=== PATIENT | female | born 1930 | race Caucasian/White ===

== ENCOUNTER 2020-11-16 17:05 | Inpatient (IN) | payer OTHER ==
[~2020-11-16] VITALS: Ht 162.6 cm; Wt 70.3 kg
[2020-11-16 17:09] VITALS: BP 124/34
[2020-11-16] MEDS ORDERED: LORAZEPAM 0.50.5 MG PO (17:11)
[2020-11-16] MEDS ORDERED: LEVO-T50 MCG PO (17:11)
[2020-11-16] MEDS ORDERED: BACTRIM DS TAB1 EAC1 PO (17:11)
[2020-11-16] MEDS ORDERED: ELIQUIS2.5 MG PO (17:11)
[2020-11-16] MEDS ORDERED: SINEMET 10-1001 EAC1 PO (17:12)
[2020-11-16] MEDS ORDERED: METHADONE HCL5 MG PO (17:12)
[2020-11-16] MEDS ORDERED: HYDROMORPHO1 MG/1 M9 IV (17:21)
[2020-11-16 17:45] LABS: HCO3 25.5 mmol/L (22.0-26.0); PCO2 40.3 mmHg (35.0-45.0); PO2 84.2 mmHg (80.0-100.0); pH 7.419 (7.360-7.450); sO2 96.5 % (92.0-98.0)
[2020-11-16 18:01] LABS: ABSOLUTE NEUTROPHILS 4.4 thou/uL (1.4-8.2); BASOPHILS 0.5 % (0.0-2.0); EOSINOPHILS 1.7 % (0.0-3.0); HEMATOCRIT 38.4 % (37.0-47.0); HEMOGLOBIN 12.6 gm/dL (12.0-15.0); LYMPHOCYTES 24.7 % (24.0-44.0); MCH 29.2 pg (26.0-34.0); MCHC 32.9 g/dL (28.0-37.0); MCV 88.7 fL (80.0-100.0); MONOCYTES 6.4 % (1.0-8.0); PLATELET COUNT 179 thou/uL (150-400); POLYS 66.7 % (36.0-66.0); RBC 4.33 mil/uL (4.20-5.00); RDW 15.5 % (10.5-14.5); WBC 6.5 thou/uL (4.0-11.0)
[2020-11-16 18:10] LABS: URINE BLOOD 3+ (Negative); URINE CLARITY CLEAR; URINE COLOR YELLOW; URINE GLUCOSE-RANDOM* NEGATIVE (Negative); URINE KETONES NEGATIVE (Negative); URINE PROTEIN (DIPSTICK) 3+ (Negative); URINE SPECIFIC GRAVITY <= 1.005 (1.005-1.035)
[2020-11-16 18:11] LABS: CREATININE 1.5 mg/dL (0.6-1.0); POTASSIUM 4.5 mmol/L (3.5-5.1)
[2020-11-16 18:14] LABS: URINE LEUKOCYTES-REFLEX 3+ (Negative); URINE NITRITE-REFLEX POSITIVE (Negative)
[2020-11-16 18:17] LABS: ALBUMIN 3.6 g/dL (3.4-5.0); TOTAL BILIRUBIN 0.7 mg/dL (0.2-1.0); TOTAL PROTEIN 7.8 g/dL (6.4-8.2)
[2020-11-16 18:23] LABS: ICTOTEST (BILI CONFIRMATORY) Negative (Negative)
[2020-11-16 18:24] LABS: URINE BILIRUBIN NEGATIVE (Negative)
[2020-11-16 18:41] LABS: TRIPLE PHOSPHATE CRYSTALS 4-10 Moderate /LPF (None Seen)
[2020-11-16 18:42] LABS: CASTS None Seen /LPF (None Seen); SQUAMOUS None Seen /LPF (0-3); URINE WBC-REFLEX 0-5 Rare /HPF (0-5)
[2020-11-16 20:05] VITALS: BP 131/59
[2020-11-16 21:37] VITALS: BP 126/52
--- NOTE | 2020-11-16 22:10 | NUR ---
Pt. was admitted to the unit from the emergency room accompanied by staff. She is awake, but does not verbalize. At times she will mummble some words. Bed alarm is on.
[2020-11-17 02:03] LABS: CALCIUM 9.7 mg/dL (8.5-10.1); CREATININE 1.3 mg/dL (0.6-1.0); MAGNESIUM 2.1 mg/dL (1.8-2.4); POTASSIUM 4.3 mmol/L (3.5-5.1)
[2020-11-17 05:29] VITALS: BP 117/85
[2020-11-17 06:03] LABS: HEMATOCRIT 36.1 % (37.0-47.0); HEMOGLOBIN 11.6 gm/dL (12.0-15.0); MCH 28.7 pg (26.0-34.0); MCV 89.7 fL (80.0-100.0); RBC 4.03 mil/uL (4.20-5.00); RDW 15.8 % (10.5-14.5); WBC 7.1 thou/uL (4.0-11.0)
--- NOTE | 2020-11-17 06:41 | NUR ---
Pt. rested at short intervals during the night when checked on during frequent rounds. Padilla catheter that she came in with was leaking and it was replaced per order. Hematuria is present. No apparent pain. Pt. can attempt to strike out at staff during direct care. Bed alarm is on.
[2020-11-17 08:00] VITALS: BP 137/62
[2020-11-17 09:00] VITALS: BP 134/55
--- NOTE | 2020-11-17 11:31 | NUR ---
Assumed pt care at 7am.Pt in bed resting. Assessment completed.vss.Pt fed at breakfast .Pt refused meal but took few nites of apple sauce.Repositioned for comfort.Dr Mg here.Order noted.Will replace lumbar drsg before the shift is over.Pt in bed sleeping at present.Will continue to monitor.
[2020-11-17 16:00] VITALS: BP 139/61
[2020-11-17 20:22] VITALS: BP 157/75
--- NOTE | 2020-11-18 02:58 | NUR ---
PT CARE ASSUMED AT 1900 WITH PT ON BED.PT IS ON BEDREST AND A TOTAL CARE AND Q2 TURN.PT IS A/O TO SELF.PT HAS A SACRO-LUMBAR WOUND WITH DRESSING C/D/I.PT NON COORPERATIVE WITH CARE AND SPITTING OUT MEDICATION.MEDS CRUSHED AND PUT IN APPLE SAUCE.IV ACCESS ON RT FA GOT INFILTRATED AND NEW ONE PLACED ON RT WRIST SL.WILL CONTINUE TO MONITOR
[2020-11-18 05:42] LABS: HEMATOCRIT 33.2 % (37.0-47.0); HEMOGLOBIN 10.9 gm/dL (12.0-15.0); MCH 29.2 pg (26.0-34.0); MCHC 32.6 g/dL (28.0-37.0); MCV 89.5 fL (80.0-100.0); RBC 3.71 mil/uL (4.20-5.00); RDW 15.7 % (10.5-14.5); WBC 7.2 thou/uL (4.0-11.0)
[2020-11-18 05:49] LABS: CALCIUM 9.4 mg/dL (8.5-10.1); CREATININE 0.9 mg/dL (0.6-1.0); POTASSIUM 3.9 mmol/L (3.5-5.1)
[2020-11-18 07:32] VITALS: BP 140/56
[2020-11-18 08:14] VITALS: BP 140/56
--- NOTE | 2020-11-18 12:33 | NUR ---
WOUND CONSULT; A WOUND WAS IDENTIFIED TO THE MID THORASIC BACK. UNSTAGEABLE ATH THIS TIME. THE WOUND IS UNSTABLE WITH A SMALL AMOUNT OF SEROSANGIOUS DRAINAGE. LIKELY COLONIZED WOUND. TENDER TO PATIENT. RECOMMENDATION; AG FOAM, SECURE WITH TAPE CHANGE M/W/F PRN DISCUSSED WITH RN.
--- NOTE | 2020-11-18 13:24 | NUR ---
PT ADMITTED RELATED TO UTI, HYPERNATREMIA, ACUTE RENAL FAILURE. CM REVIEWED CHART AND SPOKE WITH CARE TEAM. CM CALLED AND SPOKE WITH PT'S SON RUDY MARTELL . HE INDICATED THAT PT RESIDES IN A HOUSE WITH HIM WITH NO STEPS TO ENTER AND NONE INSIDE. HE INDICATED THAT PT HAD BEEN BED BOUND PRESSURE WASHER. HE INDICATED THAT PT HAD BEEN ON SERVICE WITH [facility] PRESSURE WASHER. HE INDICATED THAT HE HAD SIGNED REVOCATION PAPERWORK PRESSURE WASHER. CM CONTACTED [facility] FOR PAPERWORK AND IT WAS FAXED TO CM PLACED ON CHART AND SCANED TO PT'S RECORD. PT'S SON INDICATED THAT THEY HAVE A HOSPITAL BED, MANDIE LIFT DEVICE, AND BEDSIDE COMMODE FOR HOME USE. SON INDICATED THAT HE ANTICPATED PT RETURNING HOME WITH HOSPICE ONCE MEDICALLY STABLE BUT THAT HE DIDN'T WANT [facility] AGAIN. HE ASKED THAT REFERRAL BE SENT TO HOSPICE. CM FAXED REFERRAL AND NOTIFIED LIAISON. CARE TEAM INDIATED THAT PT MAY BE DC READY TOMORROW. CM FOLLOWING REGARDING DC PLANNING.
--- NOTE | 2020-11-18 15:36 | NUR ---
This RN agrees with the assessment of the DESK SERGEANT.
--- NOTE | 2020-11-18 15:52 | NUR ---
ASSUMED CARE OF PATIENT AT SHIFT CHANGE. ASSESSMENT CHARTED. MEDICATIONS GIVEN PER MAR; CRUSHED IN ICE-CREAM. PER SPEECH, PATIENT ABLE TO TAKE PO INTAKE IF HOLDING SPOON; IF PERSON FEEDING PATIENT SPOONS FOOD INTO PATIENT MOUTH WHILE SHE HOLDS SPOON, PATIENT WILL THINK SHE IS FEEDING SELF AND TAKE THE FOOD. WOUND CARE COMPLETED BY KADEN WOUND NURSE. PATIENT IS NOW ON A LOW AIRLOSS MATTRESS AND HAS BILATERAL PRAFO BOOTS. PATIENT AWAKE WITH EYES CLOSED; OCASSIONALLY SAYS "NO" BUT OTHERWISE NOT ORIENTED. LEGGER PRESS OPERATOR AT BEDSIDE. PLAN IS FOR PATIENT TO RETURN HOME TOMORROW 11/19/20 W HOSPICE SVC'S. FALL PRECAUTIONS REMIAN IN PLACE AND FREQUENT ROUNDING IN PLACE. CONTINUING TO MONITOR PATIENT
[2020-11-18 16:11] VITALS: BP 146/80
[2020-11-18 20:01] VITALS: BP 153/76
--- NOTE | 2020-11-19 04:02 | NUR ---
Assumed pt care at 1900. Alert to self only,answers yes/no at times,singing. VSS. No s/sx of pain or distress. Repositioned every 2 hrs w/o problems.Padilla patent to DD with yellow urine. Foam dressing in place on mid upper back. Fall precautions in place,frequent checks on pt. SR/SB on telemetry. Resting w/o any distress,will continue to monitor pt.
[2020-11-19 08:07] VITALS: BP 122/55
--- NOTE | 2020-11-19 08:42 | NUR ---
Chart reviewed, pt likely discharge today with hospice. Defer nutrition eval.
[2020-11-19 09:43] VITALS: BP 122/55
--- NOTE | 2020-11-19 11:08 | NUR ---
CARE TEAM INDICATED THAT PT IS MEDICALLY STABLE TO DC HOME THIS DAY. PT IS TO DC HOME ONTO HOSPICE SERVICES. EQUIPTMENT HAS BEEN DELIVERED TO THE HOME AT THE TIME OF THIS NOTE. [facility] STRETCHER ARRANGED FOR [address]. CM NOTIFIED IP ARCHITECT AND PT'S SON ALL ARE AWARE AND AGREEABLE. OUTSIDE HOSPITAL DNR FORM COMPLETED. NO OTHER CM INTERVENTION INDICATED. CASE CLOSED.
--- NOTE | 2020-11-19 15:18 | NUR ---
ASSUMED CARE OF PATIENT AT SHIFT CHANGE. ASSESSMENT CHARTED. MEDICATIONS ADMINISTERED PER EMAR CRUSHED WITH PUDDING. PATIENT IS NON VERBAL AND DISORIENTED. ON BEDREST AND REPOSITIONED Q2 HRS. PIKE INTACT. WOUNDCARE COMPLETE BY BHARATH WOODALL RN. THIS NURSE UNABLE TO TAKE PHOTOS OF DIOOSCHARGE WOUND PER WOUND CARE. IV ABX INFUSED X1; IV DISCONTINUED. PATIENT LEFT UNIT W PRAFO BOOTS W DENIS.
--- NOTE | 2020-11-19 15:34 | NUR ---
[facility] NOTIFIED OF DOUGH PANNER STILL ON PATIENT APPROX 8 MINUTES POST DEPARTURE. DISPATCH NOTIFIED CREW AND THEY WILL RETURN BOX AFTER TRANFER.
--- NOTE | 2020-11-19 15:43 | NUR ---
WOUND CARE F/U; THE MID BACK WOUND IS DRAINGING SEROSANGINOUS DRAINAGE WITH A SMALL TO MODERATE AMOUNT. THERE IS NO ORDER. THIS IS AN AREA OVER AN SPINE ABNORMALITY. A PRESSURE INJURY IS PRESENT. NO ODOR. THE PATIENT CANNOT TURN HERSELF. RECOMMENDATIONS; CONTINUE CURRENT TREATMENT. DISCUSSED WITH RN.
== END 2020-11-19 16:47 | disposition hospice, home (50) | DRG 698 ==
LOC: ER 17:05 → 4W 19:33 → EROBS 19:33 → 4W 19:33
PROVIDERS: Emergency Medicine; Hospitalist; Nurse Practitioner Acute Care; ADMIT Internal Medicine; ATTEND Internal Medicine
PROC: 0T2BX0Z Change Drainage Device in Bladder, External Approach (ICD-10-PCS; principal; 2020-11-17)
DX: T83.511A Infection and inflammatory reaction due to indwelling urethral catheter, initial encounter (principal); G93.41 Metabolic encephalopathy; N17.0 Acute kidney failure with tubular necrosis; E87.0 Hyperosmolality and hypernatremia; L02.212 Cutaneous abscess of back [any part, except buttock and flank]; N39.0 Urinary tract infection, site not specified; R31.9 Hematuria, unspecified; N18.30 Chronic kidney disease, stage 3 unspecified; S31.000A Unspecified open wound of lower back and pelvis without penetration into retroperitoneum, initial encounter; G20 Parkinson's disease; X58.XXXA Exposure to other specified factors, initial encounter; G89.29 Other chronic pain; E03.9 Hypothyroidism, unspecified; K59.00 Constipation, unspecified; Z51.5 Encounter for palliative care; Z86.718 Personal history of other venous thrombosis and embolism; Z79.01 Long term (current) use of anticoagulants; Z79.899 Other long term (current) drug therapy; Y92.89 Other specified places as the place of occurrence of the external cause; Y93.89 Activity, other specified; Y99.8 Other external cause status
CPT/HCPCS: 10045

== ENCOUNTER 2020-11-27 17:42 | Inpatient (IN) | payer OTHER ==
[~2020-11-27] VITALS: Ht 162.6 cm; Wt 59.4 kg
[~2020-11-27 17:42] MED LIST: BACTRIM DS TAB1 EAC1 PO; ELIQUIS2.5 MG PO; HYDROMORPHO1 MG/1 M9 IV; LEVO-T50 MCG PO; LORAZEPAM 0.50.5 MG PO; METHADONE HCL5 MG PO; SINEMET 10-1001 EAC1 PO
[2020-11-27 17:44] VITALS: BP 135/64
[2020-11-27 18:44] LABS: ABSOLUTE NEUTROPHILS 5.2 thou/uL (1.4-8.2); BASOPHILS 0.5 % (0.0-2.0); EOSINOPHILS 3.3 % (0.0-3.0); HEMATOCRIT 32.8 % (37.0-47.0); HEMOGLOBIN 10.6 gm/dL (12.0-15.0); LYMPHOCYTES 23.6 % (24.0-44.0); MCH 28.5 pg (26.0-34.0); MCHC 32.3 g/dL (28.0-37.0); MCV 88.3 fL (80.0-100.0); MONOCYTES 10.2 % (1.0-8.0); PLATELET COUNT 204 thou/uL (150-400); POLYS 62.4 % (36.0-66.0); RBC 3.71 mil/uL (4.20-5.00); RDW 15.7 % (10.5-14.5); WBC 8.3 thou/uL (4.0-11.0)
[2020-11-27 18:53] LABS: URINE BILIRUBIN 1+ (Negative); URINE BLOOD 3+ (Negative); URINE CLARITY CLEAR; URINE COLOR YELLOW; URINE GLUCOSE-RANDOM* NEGATIVE (Negative); URINE KETONES TRACE (Negative); URINE LEUKOCYTES-REFLEX 1+ (Negative); URINE NITRITE-REFLEX POSITIVE (Negative); URINE PROTEIN (DIPSTICK) 2+ (Negative); URINE SPECIFIC GRAVITY >= 1.030 (1.005-1.035)
[2020-11-27 18:53] LABS: CALCIUM 9.2 mg/dL (8.5-10.1); CREATININE 0.8 mg/dL (0.6-1.0); POTASSIUM 4.3 mmol/L (3.5-5.1)
[2020-11-27 18:59] LABS: ALBUMIN 2.6 g/dL (3.4-5.0); DIRECT BILIRUBIN 0.5 mg/dL (<0.1-0.2); MAGNESIUM 1.8 mg/dL (1.8-2.4); TOTAL BILIRUBIN 1.1 mg/dL (0.2-1.0); TOTAL PROTEIN 6.4 g/dL (6.4-8.2)
[2020-11-27 19:11] LABS: MUCUS 4-6 Moderate strn/LPF (None Seen); SQUAMOUS None Seen /LPF (0-3)
[2020-11-27 19:12] LABS: CASTS None Seen /LPF (None Seen); URINE WBC-REFLEX 6-15 Few /HPF (0-5)
[2020-11-27 19:13] LABS: BACTERIA-REFLEX >30 Many /HPF (None Seen); CRYSTALS None Seen /LPF (None Seen)
[2020-11-27 20:52] VITALS: BP 135/64
[2020-11-27 21:09] VITALS: BP 137/60
[2020-11-27 23:06] VITALS: BP 143/69
--- NOTE | 2020-11-28 04:29 | NUR ---
RECEIVED CARE OF THIS PATIENT AT 2245 FROM ED VIA CART ACCOMPANIED BY ED PERSONEL. PATIENT NOT ORIENTED AT ALL. WILL NOT EVEN LOOK AT YOU IF YOU CALL HER NAME. HAS PRESSURE ULCER ON HER BACK WITH BLACK AND YELLOW ESCHAR TISSUE. O2 SAT WAS DROPPING IN THE MID TO LOWER 80'S. O2 APPLIED AT 2L/NC. HAS FPLEY PATENT WITH DARK TEA COLORED URINE. SLEPT MOST OF NIGHT. DOES NOT APPEAR TO BE IN PAIN. LIKES TO GRAB AND HOLD ONTO THINGS, WASHCLOTHES GIVEN FOR THIS PURPOSE.
[2020-11-28 05:07] VITALS: BP 134/77
[2020-11-28 08:09] VITALS: BP 158/78
--- NOTE | 2020-11-28 08:25 | NUR ---
Patient refused to eat, BG 74, texted to Dr. Wilde about the BG, fluid infusion and antibiocs. awaiting response.
--- NOTE | 2020-11-28 10:46 | NUR ---
Son--Ever---[phone], voiced that the only reason the patient was sent here was to fix the hole of the pain pump, he didnot want the pain pump to be removed. he asked the doctor to talk to a nurse in the Pain Management in [place], [facility], . The staff texted Dr. Wilde about it.
--- NOTE | 2020-11-28 14:10 | NUR ---
ASSESSMENT: CM REVIEWED CHART AND SPOKE WITH PATIENTS SON RUDY [phone] WHO PATIENT LIVES WITH. PT WAS ADMITTED FROM HOME DUE TO PAIN PUMP HAVING WIRES EXPOSED IN HER BACK. DR. DRISCOLL AND WOUND CARE WAS CONSULTED. PT LIVES AT HOME WITH SON RUDY AND WAS IN SERVICES WITH HOSPICE WHICH WAS REVOKED PRIOR TO ADMISSION. CM CONFIRMED THIS WITH DANIELA AT [facility] AND RECEIVED A COPY OF THE REVOCATION LETTER AND PROVIDED TO BLU TO SCAN IN. CM ALSO NOTIFIED UR RN AND CM DIRECTOR. SON REPORTS THAT HIS WISH IS FOR PATIENT TO RETURN HOME WITH HOSPICE SERVICES BUT WANTS TO USE [facility] HE HAD THEM IN THE PAST AND LIKES THEIR EQUIPMENT AND SERVICES BETTER THEN HOSPICE. CM NOTIFIED ADE DAVIS AT [facility]. CM SENT REFERRAL BACK TO [facility] AND SPOKE WITH ERIC WHO REPORTS THAT SHE HAVE A FAMILY MEETING WITH RUDY AND HIS BROTHER LC TOMORROW AT 11 AND THEN WILL BE ABLE TO TELL US IF THEY CAN ACCEPT PATIENT. THEY HAD CONCERNS LAST TIME THEY HAD PT ABOUT HER BEING ALONE AT HOME AT ALL. CM SPOKE WITH SON RUDY TO DISCUSS THIS AND HE REPORTS HE IS WITH HER NOW 22/03 OR HAS A CAREGIVER TYRELL THAT COMES OVER IF NEEDED. HE REPORTS [facility] LAST PROBIDED A HOSPITAL BED, MANDIE LIFT AND IS HOPEGUL TO GET THESE FOR HER AGAIN. [facility] IS SCHEDULED TO DEPUTY SHERIFF [employer] EQUIPMENT TODAY HE STATES. CM NOTIFIED ATTENDING ABOUT MEETING WITH [facility] TOMORROW AND WILL CONTINUE TO KEEP HER UPDATED. CM ALSO PROVIDED ATTENDING WITH SONS NUMBER TO CONTACT HIM PER HIS REQUEST. ATTENDING STATING SHE WILL CALL. PT IS BEDBOUND AND NON-VERBAL AT BASELINE PER NOTES. CM WILL CONTINUE TO FOLLOW TO ASSIST NEEDED AND AWAIT FURTHER PLANS. POSSIBLE HOME TOMORROW AFTER MEETING WITH HOSPICE IF THEY CAN ACCEPT. CM WILL CONTINUE TO FOLLOW.
[2020-11-28 17:23] VITALS: BP 120/51
[2020-11-28 20:14] VITALS: BP 162/81
--- NOTE | 2020-11-29 05:08 | NUR ---
RECIEVED CARE OF THIS PATIENT AT 1900. PATIENT ALERT BUT NOT ORIENTED AT ALL. MAKES NOISES MOST OF NIGHT. DOES NOT APPEAR TO BE IN PAIN. RAND CEMENTER AT ANYTHING IN REACH. REMAINS ON BEDREST. ALL EXT CONTRACTED. PIKE PATENT. SLEPT LITTLE THIS SHIFT.
[2020-11-29 05:47] VITALS: BP 143/77
--- NOTE | 2020-11-29 08:44 | NUR ---
Assess due to notification of wound. Pt has pain pump malfunction, wire exposure. Hx dementia. Plans are to return home with hospice services. Diet as tolerated. Can offer ensure enlive 1x day if pt will drink.
[2020-11-29] MEDS ORDERED: KEFLEX500 M1 PO (11:56)
[2020-11-29 13:19] VITALS: BP 143/77
--- NOTE | 2020-11-29 17:04 | NUR ---
on-going assessment: cm reviewed chart and spoke with patients son keila. plans are for patient to return home today with [facility]. sadie spoke with karen at [facility] who confirms they met with pts son and can accept today. their nurse practioner came to do eval and accepted patient. sadie spoke with son and ambulance was arranged for patient by [facility] [phone] for 1800 pecan picker time. outside dnr form was signed and placed on chart and bedside rn aware. son aware of transportation time. equiptment was already delivered to patients home. cm notified liason at [facility] of discharge time. case closed.
--- NOTE | 2020-11-29 17:55 | NUR ---
ASSUMED CARE OF PATIENT AT 0700. ASSESSMENT CHARTED. MEDICATIONS ADMINISTERED PER EMAR. PATIENT IS A BEDRIDDEN HOSPICDE PATIENT. NON VERBAL BUT MOANING. PO MORPHINE SYRINGE GIVEN FOR PAIN W DECREASED MOANING NOTED. WOUND LOOKED AT BY WOUND CARE TEAM. DRESSING C/D/I. PATIENT TO D/C WITH HOSPICE THIS DAY. TRANSPORT PROVIDED FOR 1800. PATIENT REPOSITIONED OFTEN TOLERATED AND MOUTH SWABBED. PROVIDED FEEDING FOR MEALS. IV DISCONTINUED FOR DISCHARGE. WILL CONTINUE TO MONITOR UNTIL DISCHARGE
--- NOTE | 2020-12-02 09:21 | HC ---
[facility] [place] [address] CONSULTATION Name: JULIAN BROOKE Room #: 445-P [facility] IN M.R.#: [id number] Admission: 11/27/20 Attend Phys: Mickey Mg MD Discharge: 11/29/20 Date of : [birth year] Report #: [id number] THIS REPORT FOR: cc: Pretty Funez MD, Suzanne MD Althoff,Holden Barone MD ~ DATE OF SERVICE: 11/28/2020 CHIEF COMPLAINT: Pressure ulceration to the back. HISTORY OF PRESENT ILLNESS: This is an 89-year-old female patient who was admitted through the Emergency Department. She presented with altered mental status. Apparently, she has been at home on hospice, has advanced dementia. She has a pain pump in place and her son had noted wires coming out of the wound near her back and she was admitted for further evaluation and treatment. I have been asked to see her with regard to wound care. The patient can provide no information about herself. PAST MEDICAL HISTORY: Positive for previous spinal fusion, hypothyroidism, Parkinson's dementia, chronic back pain, Dilaudid based pain pump, and history of DVT. SOCIAL HISTORY: The patient lives at home, apparently on hospice. Alcohol, tobacco habits unknown. FAMILY HISTORY: Unknown. MEDICATIONS: Include Bactrim, Synthroid, Eliquis, lorazepam, Sinemet, methadone, hydromorphone. ALLERGIES: No known drug allergies. REVIEW OF SYSTEMS: Not obtainable due to the patient's condition and advanced dementia. PHYSICAL EXAMINATION: VITAL SIGNS: Include temperature 37.0, pulse 71, respiratory rate 16, blood pressure 150/78. GENERAL: This is a chronically ill-appearing female patient who appears to be in no obvious distress. HEENT: Head is normocephalic. NECK: Nontender. LUNGS: Diminished. HEART: Regular, without murmur. ABDOMEN: Soft. Bowel sounds are present. [facility] [address] [place] [address] CONSULTATION Name: JULIAN BROOKE Room #: 445-P [facility].#: [id number] Admission: 11/27/20 Attend Phys: Mickey Mg MD Discharge: 11/29/20 Date of : [birth year] Report #: [id number] EXTREMITIES: Examination of the back demonstrates a lower back pressure ulceration with some mix of moist eschar and a little bit of fibrin. I do not see any foreign object present in the base, nor protruding from the wound bed. This is very close to her spinous processes. I do not feel the location of the pain pump in her back area. EXTREMITIES: Show contractures. NEUROLOGIC: The patient does open her eyes, is noncommunicative. LABORATORY DATA: Sodium 140, potassium 4.3, chloride 106, CO2 of 31, BUN 23, creatinine 0.8, glucose 104. Albumin is 2.6. White blood cell count 8.3 with a hemoglobin of 10.6. CLINICAL IMPRESSION: 1. Ulceration to the mid back, question related to pain pump versus pressure. 2. Small scattered stage 3 pressure ulceration to the right gluteal region. 3. Stage 1 pressure ulceration to both heels. 4. Severe contractures. 5. Parkinson's type dementia. 6. Moderate protein-calorie malnutrition with albumin 2.6. RECOMMENDATIONS: At this point in time, we will recommend checking a KUB, so we can at least locate where the pain pump is, it is not seen on the pelvis x-ray. We will recommend silver foam daily to the wound bed and a low air loss mattress and turn and reposition every 2 hours. General Surgery has been consulted. It is unclear as to whether the debridement would be appropriate or even indicated in this setting. We will recommend moisture barrier cream to the sacral-gluteal region. Heel protectors for the heels and nutrition support as best as possible. I appreciate being asked to see her in consultation. <ELECTRONICALLY SIGNED> By: Holden Hdz MD 12/02/20 0921 [id number] Holden Hdz MD /nt
== END 2020-11-29 20:01 | disposition hospice, home (50) | DRG 91 ==
LOC: ER 17:42 → EROBS 20:38 → 4S 20:38
PROVIDERS: Emergency Medicine; ADMIT Hospitalist; ATTEND Hospitalist
PROC: B54MZZA Ultrasonography of Right Upper Extremity Veins, Guidance (ICD-10-PCS; principal; 2020-11-27)
PROC: 05HY33Z Insertion of Infusion Device into Upper Vein, Percutaneous Approach (ICD-10-PCS; principal; 2020-11-27)
DX: T85.615A Breakdown (mechanical) of other nervous system device, implant or graft, initial encounter (principal); L89.313 Pressure ulcer of right buttock, stage 3; G93.41 Metabolic encephalopathy; N39.0 Urinary tract infection, site not specified; N17.9 Acute kidney failure, unspecified; E87.0 Hyperosmolality and hypernatremia; E44.0 Moderate protein-calorie malnutrition; R62.7 Adult failure to thrive; Z68.22 Body mass index [BMI] 22.0-22.9, adult; E03.9 Hypothyroidism, unspecified; G89.29 Other chronic pain; M54.9 Dorsalgia, unspecified; E86.0 Dehydration; G20 Parkinson's disease; F02.80 Dementia in other diseases classified elsewhere, unspecified severity, without behavioral disturbance, psychotic disturbance, mood disturbance, and anxiety; L89.621 Pressure ulcer of left heel, stage 1; L89.611 Pressure ulcer of right heel, stage 1; M24.542 Contracture, left hand; M24.541 Contracture, right hand; R53.81 Other malaise; Y83.8 Other surgical procedures as the cause of abnormal reaction of the patient, or of later complication, without mention of misadventure at the time of the procedure; Y92.89 Other specified places as the place of occurrence of the external cause
CPT/HCPCS: 10195